=== PATIENT | female | born 1990 | race Two or more races ===

== ENCOUNTER 2022-04-06 18:12 | Inpatient (IN) | payer OTHER ==
[~2022-04-06] VITALS: Ht 152.4 cm; Wt 59.0 kg
[2022-04-06] MEDS ORDERED: PRENATAL TABLE1 EAC1 PO (20:10)
== END 2022-04-29 17:20 | disposition home or self-care (01) | DRG 805 ==
LOC: OBS/DEL 18:12 → LDR 21:54 → OBS/DEL 21:54 → OB/GYN 04-07 14:50
PROVIDERS: ADMIT Student in an Organized Health Care Education/Training Program; ATTEND Student in an Organized Health Care Education/Training Program
PROC: 4A1HXCZ Monitoring of Products of Conception, Cardiac Rate, External Approach (ICD-10-PCS; 2022-04-06)
PROC: 10E0XZZ Delivery of Products of Conception, External Approach (ICD-10-PCS; principal; 2022-04-27)
PROC: BY4CZZZ Ultrasonography of Second Trimester, Single Fetus (ICD-10-PCS; 2022-04-27)
PROC: BU4CZZZ Ultrasonography of Uterus and Ovaries (ICD-10-PCS; 2022-04-27)
DX: O60.02 Preterm labor without delivery, second trimester (principal); O34.32 Maternal care for cervical incompetence, second trimester; Z37.0 Single live birth; O45.92 Premature separation of placenta, unspecified, second trimester; O41.1220 Chorioamnionitis, second trimester, not applicable or unspecified; O26.872 Cervical shortening, second trimester; O60.12X0 Preterm labor second trimester with preterm delivery second trimester, not applicable or unspecified; O26.842 Uterine size-date discrepancy, second trimester; Z3A.25 25 weeks gestation of pregnancy; Z3A.23 23 weeks gestation of pregnancy; Z20.822 Contact with and (suspected) exposure to COVID-19
CPT/HCPCS: 240

== ENCOUNTER → 2022-04-06 | Outpatient (CLI) | payer OTHER ==
[~2022-04-06] MED LIST: PRENATAL TABLE1 EAC1 PO
== END | disposition home or self-care (01) ==
LOC: PRENATAL 14:18
PROVIDERS: ATTEND Obstetrics & Gynecology Maternal & Fetal Medicine
DX: O35.0XX0 Maternal care for (suspected) central nervous system malformation in fetus, not applicable or unspecified (principal); O35.3XX0 Maternal care for (suspected) damage to fetus from viral disease in mother, not applicable or unspecified; O26.879 Cervical shortening, unspecified trimester; Z3A.22 22 weeks gestation of pregnancy